=== PATIENT | male | born 1970 | race Caucasian/White ===

== ENCOUNTER 2021-01-07 12:52 | Outpatient (CLI) | payer OTHER, SELFPAY ==
--- NOTE | 2021-01-07 13:06 | MR_ITS ---
WS: [id number] MRI RIGHT SHOULDER NONCONTRAST TECHNIQUE: Sagittal T2, coronal T1, T2 and proton density imaging. Axial gradient PDE imaging. CLINICAL INFORMATION: BICEPS TENDON TEAR COMPARISON: None. FINDINGS: Moderate hypertrophic changes at the AC joint. Mild downsloping acromion with subacromial spurring. T iny intrasubstance tear involving the distal supraspinatus with tendinopathy. Normal infraspinatus. N ormal teres minor. Normal subscapularis. Normal biceps tendon in the bicipital groove. High-grade tear of the intra-articular biceps tendon wi th T2 signal abnormality. Intra-articular biceps tendon otherwise appears intact. Glenoid labrum appe ars grossly normal. MR/MR shoulder RT wo con* [id number] IMPRESSION: 1. Moderate hypertrophic changes AC joint with mild edema and mild downsloping acromion. 2. Small intrasubstance tear involving the distal supraspinatus with tendinopa thy. 3. Rotator cuff is otherwise normal in appearance. 4. High-grade intrasubstance tear involving the intra-articular biceps tendon with T2 signal abnormality 5. Proximal biceps tendon within the bicipital groove.
== END 2021-01-07 12:53 | disposition home or self-care (01) ==
LOC: RADSHAW 12:58
PROVIDERS: PCP Physician Assistant; Visit Provider Physician Assistant
DX: S46.211A Strain of muscle, fascia and tendon of other parts of biceps, right arm, initial encounter (principal); X58.XXXA Exposure to other specified factors, initial encounter
CPT/HCPCS: 73221

== ENCOUNTER → 2021-04-26 12:58 | Outpatient (BNVA) | payer OTHER, SELFPAY | PROVIDERS: PCP Physician Assistant; Visit Provider Urology | DX: N47.1 Phimosis (principal) | CPT/HCPCS: 88304 ==

== ENCOUNTER 2021-06-19 08:43 | Outpatient (RCR) | payer OTHER, SELFPAY | END 2021-07-15 23:59 | disposition home or self-care (01) | LOC: SPT 08:43 | PROVIDERS: PCP Physician Assistant; Referring Provider Physical Medicine & Rehabilitation; Visit Provider Physical Medicine & Rehabilitation | DX: M54.12 Radiculopathy, cervical region (principal); R29.898 Other symptoms and signs involving the musculoskeletal system; R20.0 Anesthesia of skin | CPT/HCPCS: 97161 ==

== ENCOUNTER 2021-09-15 06:00 | Outpatient (RCR) | payer OTHER, SELFPAY | END 2021-10-15 23:59 | disposition home or self-care (01) | LOC: SPT 06:00 | PROVIDERS: PCP Physician Assistant; Referring Provider Physical Medicine & Rehabilitation; Visit Provider Physical Medicine & Rehabilitation | DX: M54.12 Radiculopathy, cervical region (principal); R29.898 Other symptoms and signs involving the musculoskeletal system; R20.0 Anesthesia of skin | CPT/HCPCS: 97110; 97140 ==

== ENCOUNTER 2021-10-16 06:00 | Outpatient (RCR) | payer OTHER, SELFPAY | END 2021-11-14 23:59 | disposition home or self-care (01) | LOC: SPT 06:00 | PROVIDERS: PCP Physician Assistant; Referring Provider Physical Medicine & Rehabilitation; Visit Provider Physical Medicine & Rehabilitation | DX: M54.12 Radiculopathy, cervical region (principal); M25.511 Pain in right shoulder | CPT/HCPCS: 97110 ==